=== PATIENT | female | born 1955 | race Caucasian/White ===

== ENCOUNTER 2020-10-23 01:24 | Outpatient (CLI) | payer MEDICAID, SELFPAY ==
--- NOTE | 2020-10-23 09:37 | DI.RAD_ITS ---
Exam(s) XR CERVICAL SPINE COMP 4-5V EXAM: XR CERVICAL SPINE COMP 4-5V CLINICAL HISTORY: neck pain, left radiculopathy,cervical radiculitis, m54.12. TECHNIQUE: 2D digital imaging was performed. COMPARISON: CR CERV SP.WITH OBL OR FLEX/EXT from 12/29/2016 FINDINGS: The odontoid is intact. The lateral masses are well aligned. There are again seen postsurgical dee ges of an anterior cervical disc fusion at C5-C6. There is disc space narrowing at C6-C7. Endplate osteophytes are seen at C4-5, C6-C7 and C7-T1. No acute fractures or subluxations are seen. The bon es are normally mineralized. There is no significant neural foraminal encroachment. The prevertebra l soft tissues are unremarkable. SOFT TISSUE: Normal. The lung apices are clear. IMPRESSION: 1. Mild stable degenerative changes of the cervical spine. 2. Anterior cervical disc fusion at C5-C6. DATA REPOSITORY: RADIATION DOSE DELIVERED:
== END 2020-10-23 01:44 ==
PROVIDERS: PCP Family Medicine; Visit Provider Family Medicine
DX: M54.2 Cervicalgia (principal); M54.12 Radiculopathy, cervical region; M50.323 Other cervical disc degeneration at C6-C7 level; Z98.1 Arthrodesis status
CPT/HCPCS: 72050

== ENCOUNTER 2020-10-29 02:41 | Outpatient (CLI) | payer MEDICAID, SELFPAY ==
[2020-10-29 10:52] LABS: ALT 31 U/L (14-59); AST 21 U/L (15-37); Albumin 3.9 g/dL (3.4-5.0); Alkaline Phosphatase 99 U/L (46-116); Anion Gap 8.6 mmol/L (3-11); BUN 12 mg/dL (7-18); Bilirubin, Total 0.4 mg/dL (0.2-1.0); CO2 31.4 mmol/L (21.0-32.0); Calcium 9.4 mg/dL (8.5-10.1); Calculated LDL 171 mg/dL (<100); Chloride 101 mmol/L (98-107); Cholesterol 276 mg/dL (<200); Glucose 107 mg/dL (74-106); HDL Cholesterol 39 mg/dL (40-60); Sodium 141 mmol/L (136-145); Total Protein 7.3 g/dL (6.4-8.2); Triglyceride 334 mg/dL (<150)
== END 2020-10-29 02:42 | disposition home or self-care (01) ==
LOC: LBO 02:41
PROVIDERS: PCP Family Medicine; Visit Provider Family Medicine
DX: I10 Essential (primary) hypertension (principal); M54.12 Radiculopathy, cervical region
CPT/HCPCS: 36415; 80053; 80061; 84443

== ENCOUNTER 2021-05-05 01:16 | Outpatient (CLI) | payer MEDICAID, SELFPAY ==
--- NOTE | 2021-05-05 11:30 | DI.MAMMO_ITS ---
Exam(s) MAMMO SCREENING EXAM: MAMMO SCREENING CLINICAL HISTORY: screening,Z12.39 TECHNIQUE: Bilateral full field digital CC and MLO mammographic images were obtained with 3D tomosyn thesis and utilizing computer aided detection (CAD). COMPARISON: Available for comparison. FINDINGS: Masses/Architectural Distortion: None seen. Microcalcifications: No suspicious pleomorphic-type are seen. Skin Thickening/Nipple Retraction: None. IMPRESSION: 1. No significant interval change with no specific features of malignancy noted. 2. Unless there is more urgent need, screening mammography is recommended, as per [employer] guidelines. BI-RADS Category 1 - Negative Breast Density - Category B - Scattered areas of fibroglandular density Breast density category C or D implies that the patient has dense breast tissue. Dense breast tissue is very common and is not abnormal but dense breast tissue can make it harder to find cancer on a ma mmogram. Also, dense breast tissue may increase their breast cancer risk. This information about the result of the mammogram report was provided to the patient to raise their awareness. Use this report when you speak with the patient about their risks for breast cancer, which includes their family hist ory. At that time, you may recommend for more screening tests (Ultrasound or MRI) as they might be us eful based on their risk. A negative radiographic report should not delay biopsy if a dominant or clinically suspicious mass is present. Up to ten percent of cancers are not identified on mammography. A negative report may reinforce clinical impression. Adenosis and dense breasts may obscure an underlying neoplasm. False positive reports average 6 to 10%. Patient will receive a letter notifying them of these results.
== END 2021-05-05 01:36 ==
PROVIDERS: PCP Family Medicine; Visit Provider Family Medicine
DX: Z12.31 Encounter for screening mammogram for malignant neoplasm of breast (principal)
CPT/HCPCS: 77063; 77067

== ENCOUNTER 2021-09-10 18:28 | Emergency (ER) | payer MEDICAID, SELFPAY ==
[2021-09-10 18:32] VITALS: BP 177/82; PULSE 76; RESP 18; TEMP 36.6; O2SAT 99
[2021-09-10] MEDS: Ketorolac 15 MG/ML VIAL IM (19:06)
[2021-09-10] MEDS: Ondansetron O.D.T. 4 MG TABEF (19:08)
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
--- NOTE | 2021-09-10 19:39 | DI.RAD_ITS ---
Exam(s) XR FOREARM RT EXAM: XR FOREARM RT CLINICAL HISTORY: fall, distal forearm pain. TECHNIQUE: 2D digital imaging was performed. Two views. COMPARISON: No exams were available for comparison FINDINGS: BONES: Comminuted fracture distal radius. Ulnar styloid fracture. No additional fractures seen prox imally. No bony destructive lesion is seen. Visualized portion of elbow is unremarkable. SOFT TISSUE: Normal. IMPRESSION: Comminuted distal radial fracture and ulnar styloid fracture. DATA REPOSITORY: RADIATION DOSE DELIVERED:
--- NOTE | 2021-09-10 19:39 | DI.RAD_ITS ---
Exam(s) XR WRIST RT COMPLETE EXAM: XR WRIST RT COMPLETE CLINICAL HISTORY: fall, wrist pain. TECHNIQUE: 2D digital imaging was performed. Three views. COMPARISON: No exams were available for comparison FINDINGS: BONES: There is a comminuted distal radial fracture. The main component is transverse through the me taphysis. There is extension to the articular surface. There is dorsal angulation. There is some m ildly displaced ulnar styloid fracture. No bony destructive lesion is seen. JOINTS: The carpal bones are normally aligned. SOFT TISSUE: Swelling carpal region IMPRESSION: Comminuted distal radial fracture. Ulnar styloid fracture DATA REPOSITORY: RADIATION DOSE DELIVERED:
[2021-09-10] MEDS: oxyCODONE 5 mg/Acetaminophen 325 mg TAB 1 TAB PO (19:56)
--- NOTE | 2021-09-10 19:58 | DI.VRAD_ITS ---
PROCEDURE INFORMATION: Exam: XR Right Forearm Exam date and time: 09/10/2021 7:33 PM Age: 66 years old Clinical indication: Injury or trauma; Fall; Blunt trauma (contusions or hematomas); Arm, lower; Right TECHNIQUE: Imaging protocol: XR Right forearm. Views: 2 views. COMPARISON: CR XR WRIST RT COMPLETE 09/10/2021 7:30 PM FINDINGS: Bones/joints: A distal radius fracture is present. Acute fracture of the ulnar styloid process is also noted. There Soft tissues: Normal. IMPRESSION: Distal radius fracture and ulnar styloid process fracture. Dictated and Authenticated by: Rubi Sullivan MD. Ordering:JUAN Hooper MD
--- NOTE | 2021-09-10 20:00 | DI.VRAD_ITS ---
PROCEDURE INFORMATION: Exam: XR Right Wrist Exam date and time: 09/10/2021 7:30 PM Age: 66 years old Clinical indication: Injury or trauma; Fall; Blunt trauma (contusions or hematomas); Wrist; Right TECHNIQUE: Imaging protocol: XR Right wrist. Views: 3 or more views. COMPARISON: No relevant prior studies available. FINDINGS: Bones/joints: There is a mildly comminuted fracture of the distal radial metaphysis with dorsal angulation of the distal fracture fragments. There is a vertical component of fracture extending towards the radial diaphysis which is nondisplaced. The ulnar styloid process is also likely fractured with minimal displacement. There are mild degenerative changes at 1st carpometacarpal joint. Soft tissues: Unremarkable. IMPRESSION: 1. Distal radius fracture, as described above. 2. Ulnar styloid process fracture. Dictated and Authenticated by: Rubi Sullivan MD. Ordering:JUAN Hooper MD
== END 2021-09-10 20:37 | disposition home or self-care (01) ==
LOC: ER 20:30
PROVIDERS: Emergency Provider Emergency Medicine; PCP Family Medicine
DX: S52.591A Other fractures of lower end of right radius, initial encounter for closed fracture (principal); S52.611A Displaced fracture of right ulna styloid process, initial encounter for closed fracture; W18.39XA Other fall on same level, initial encounter
CPT/HCPCS: 29125; 96372; 99284; 73090; 73110; 99283; J1885

== ENCOUNTER 2021-09-15 17:00 | Outpatient (REF) | payer MEDICAID, SELFPAY ==
[2021-09-15 11:20] LABS: Source Nasal/Nares
[2021-09-15 13:59] LABS: COVID-19 PCR Negative (Negative)
== END 2021-09-15 17:01 | disposition home or self-care (01) ==
LOC: LBN 17:00
PROVIDERS: PCP Family Medicine; Visit Provider Student in an Organized Health Care Education/Training Program
DX: Z20.822 Contact with and (suspected) exposure to COVID-19 (principal); Z01.818 Encounter for other preprocedural examination
CPT/HCPCS: 87635

== ENCOUNTER 2021-09-18 06:23 | Day surgery (SDC) | payer MEDICAID, SELFPAY ==
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
[2021-09-18] VITALS (9 sets, daily range): BP systolic 110–144; BP diastolic 50–78; PULSE 66–72; RESP 16–18; TEMP 36.2–36.7; O2SAT 92–97; BMI 42.0
[2021-09-18] MEDS: Lactated Ringers 1,000 ML 30 ML IV (07:15)
--- NOTE | 2021-09-18 08:08 | DI.RAD_ITS ---
Exam(s) XR WRIST RT LIMITED EXAM: XR WRIST RT LIMITED CLINICAL HISTORY: displaced right distal radius ulnar styloid. TECHNIQUE: 2D and realtime digital imaging was performed. Fluoroscopy was provided for Dr. Boyle COMPARISON: CR,XR XR FOREARM RT from 09/10/2021 FINDINGS: Hard copy images show placement of a splint. There has been improvement in the alignment of the dist al radial fracture. Please see procedure note for details. Fluoro time 8.4 seconds RADIATION DOSE DELIVERED: geeta Rich=0.19 mGy
--- NOTE | 2021-09-18 08:23 | W.ANESNERVE ---
Nerve Block Single Injection Procedure Date and Time Date Performed: 09/18/21 Procedure Start: 07:28 Location Where Procedure Performed Procedure Location: Day Surgery Unit Reason Performed: Postoperative Analgesia Requesting Provider: Elilott Boyle Timeout Performed Timeout Performed: Yes Monitoring Used ECG, Blood Pressure and SpO2 Sterility Sterility: Hand Hygiene, Surgical Cap, Surgical Mask, Sterile Gloves and Chlorhexidine Sedation Given During Procedure Sedation Given (Indicate Dose Given): No Sedation given and Versed IV Dose:: 2 mg Patient Mental Status Patient Mental Status: Sedate with meaningful communication Nerve Block 1st Nerve Block: Laterality: Right Block Type: Supraclavicular Needle / Catheter Used: 100mm SonoPlex II Local Anesthetic Bolus (Indicate Dose Given): Lidocaine used for local infiltration of skin, Injected in 3-5ml increments after negative blood aspiration, Bupivacaine 0.5% Dose:: 10 ml and Exparel Dose:: 10 ml Additives (Indicate Dose Given): None Ultrasound: Sterile probe cover and gel used Ultrasound Image Saved?: Yes Nerve Stimulator: Not Used Paresthesia: None Procedure Tolerated: No Complications and Patient tolerated well Procedure Outcome: Successful Performed By: George Damico
--- NOTE | 2021-09-18 08:48 | W.PM.DSUDISC ---
Discharge Plan Disposition Patient Disposition: HOME Condition: Stable Discharge Details Reason For Visit: Right wrist fracture Attending Provider: Elliott Boyle Primary Care Provider: Silvina Cortés Home Meds and New Rx's Prescriptions: New oxycodone 5 mg tablet 5 - 10 mg PO Q4H MDD 30 mg PRN (Reason: moderate to severe pain) Qty: 12 0RF Continued fexofenadine 180 mg tablet 180 mg PO DAILY PRN0RF magnesium 30 mg tablet 30 mg PO DAILY 0RF naproxen 250 mg tablet 250 - 500 mg PO BID PRN (Reason: pain, moderate) Qty: 60 0RF Rx Instructions: take with a meal ascorbic acid (vitamin C) 500 mg capsule 500 mg PO DAILY PRN0RF elderberry fruit 200 mg capsule 200 mg PO DAILY PRN0RF duloxetine 60 mg capsule,delayed release(DR/EC) 60 mg PO HS Qty: 90 11RF hydrochlorothiazide 12.5 mg tablet 12.5 mg PO QAM Qty: 90 4RF multivitamin [Daily Multi-Vitamin] Tablet 1 tab PO DAILY 0RF Discontinued ibuprofen 200 MG capsule 2 - 3 cap PO DAILY PRN0RF Discharge Instructions Additional Instructions: Surgery: Right distal radius closed reduction with manipulation under anesthesia Activity: Non-weightbearing. Recommend elevation to minimize swelling and discomfort. Encourage range of motion all fingers and thumb to prevent stiffness. Observe nerve symptoms for recovery/improvement. Hand therapy prescription will be sent electronically to begin in about 2-3 weeks. Prescriptions: Naproxen 250 mg take 1-2 every 12 hours with a meal as needed for moderate pain Oxycodone 5 mg take 1-2 every 4-6 hours as needed for severe pain You may use [id number] Tylenol (acetaminophen) as needed for mild pain. These pain medications may be taken all at once or in different combinations as needed. Also, recommend Colace (docusate) as a stool softener as surgery and pain medicine cause constipation. Dressings: Leave splint and dressing in place until follow-up. Keep clean and dry at all times. Follow-up: 10-[address] Boyle Let us know right away if you develop any redness, drainage, fevers, chest pain, or trouble breathing. Do not drink alcohol or drive for at least 24 hours after anesthesia. Please call the office during business hours with any questions or concerns. Referrals: Elliott Boyle MD [ [facility] STAFF PHYSICIAN] - Discharge Orders Discharge Orders: Discharge Order (Routine); Ordered 09/18/21 Ordered By: Elliott Boyle DS: Diagnosis Discharge Diagnosis (1) Distal radius fracture: Status: Acute (2) Fracture of ulnar styloid: Status: Acute
--- NOTE | 2021-09-18 08:50 | W.PM.OP ---
Date of service: 09/18/21 Time of Service: 07:30 Operative Note Operative Note DATE OF PROCEDURE: 09/18/21 PRE-OP DIAGNOSIS: Right displaced distal radius and ulnar styloid fractures POST-OP DIAGNOSIS: same PROCEDURE: Right distal radius closed reduction with manipulation under anesthesia, CPT #85526 SURGEON: Elliott Boyle [employer] INS[employer] TESTER: None None ANESTHESIA TYPE: General LMA/ETT and Primary Nerve Block Refer to Anesthesia Record ESTIMATED BLOOD LOSS: 0 COMPLICATIONS: None Patient was transported to: PACU Patient's condition: stable Indications: Please see complete medical record for details. Procedure Description: In the operating room, general anesthesia was induced. The patient was positioned supine on the stretcher. All bony prominences were well-padded. Preoperative antibiotics were omitted. The correct patient, procedure, and side of the procedure were all verified prior to beginning. The wrist was examined. There was obvious dorsal angulation distal radius deformity with palpable bony prominence. Fingers had brisk cap refill 2+ radial pulse. The deformity was localized and using a single manipulation reduction maneuver traction was applied followed by slight exaggerated the deformity and then a moderate volar directed reduction force. There is excellent palpable reduction. The wrist examined with good alignment. X-rays confirmed appropriate reduction. A well-padded, well molded three-point maintain volar directed force sugar-tong splint was applied to extremity. Final x-rays confirmed appropriate splint and fracture reduction. The patient awoke from anesthesia without complication and was transferred to the recovery room in a stable condition.
--- NOTE | 2021-09-18 08:50 | W.ANESPOSTOP ---
Postoperative Evaluation Date, Time and Location Date Performed: 09/18/21 Time Performed: 08:41 Patient Location: PACU Vital Signs Most Recent Imported Vital Signs: Most Recent Vital Signs Temp Pulse Resp BP Pulse Ox 36.2 C L 70 17 130/50 L 94 09/18/21 08:41 09/18/21 08:41 09/18/21 08:41 09/18/21 08:41 09/18/21 08:41 Pain Score Most Recent Pain Score: Most Recent Pain Score Pain Level 5 09/18/21 08:41 Assessment Mental Status: Awake (Alert & Oriented to Patient Baseline) Airway and Respiratory Function: Patent airway with normal (patient baseline) respiratory exam Cardiovascular Function: Hemodynamically Stable Hydration Status: Adequately Hydrated Nausea & Vomiting: No Nausea or Vomiting Pain: Pain is tolerable per patient Peripheral Nerve Block: Regional nerve block not resolved at time of post operative discharge
[2021-09-18] MEDS: oxyCODONE 5 MG TAB PO (09:21)
== END 2021-09-18 10:17 | disposition home or self-care (01) ==
PROVIDERS: PCP Family Medicine; Visit Provider Student in an Organized Health Care Education/Training Program
PROC: (CPT 25605; principal; 2021-09-18 07:30)
DX: S52.501A Unspecified fracture of the lower end of right radius, initial encounter for closed fracture (principal); S52.611A Displaced fracture of right ulna styloid process, initial encounter for closed fracture; I10 Essential (primary) hypertension; M81.0 Age-related osteoporosis without current pathological fracture
CPT/HCPCS: 25605; 76942; 73100; J1100; J2001; J2250; J2405; J2704

== ENCOUNTER 2021-09-30 09:58 | Outpatient (CLI) | payer MEDICAID, SELFPAY ==
--- NOTE | 2021-09-30 09:45 | DI.RAD_ITS ---
Exam(s) XR WRIST RT LIMITED EXAM: XR WRIST RT LIMITED INDICATION: s/p closed reduction R distal radius. COMPARISON: CR,XR XR WRIST RT COMPLETE from 09/10/2021 TECHNIQUE: 2D digital imaging was performed. Two views. FINDINGS: There has been no change in alignment of the distal radial and ulnar styloid fractures. Increased he aling is seen at the distal radial fracture. DATA REPOSITORY: RADIATION DOSE DELIVERED:
== END 2021-09-30 09:59 | disposition home or self-care (01) ==
LOC: DIORS 09:59
PROVIDERS: PCP Family Medicine; Referring Provider Family Medicine; Visit Provider Physician Assistant Surgical
DX: S52.611D Displaced fracture of right ulna styloid process, subsequent encounter for closed fracture with routine healing (principal); S52.591D Other fractures of lower end of right radius, subsequent encounter for closed fracture with routine healing; X58.XXXD Exposure to other specified factors, subsequent encounter
CPT/HCPCS: 73100

== ENCOUNTER 2021-10-22 12:26 | Outpatient (CLI) | payer MEDICAID, SELFPAY ==
--- NOTE | 2021-10-22 12:00 | DI.RAD_ITS ---
Exam(s) XR WRIST RT LIMITED EXAM: XR WRIST RT LIMITED CLINICAL HISTORY: acute pain. TECHNIQUE: 2D digital imaging was performed. COMPARISON: CR XR WRIST RT LIMITED from 09/30/2021 FINDINGS: Two views Again noted is the fracture of distal radius violates the radiocarpal surface. Minimal impaction. T here is also avulsed fracture of the ulnar styloid again noted. Scapholunate distance is. There is no carpal dislocation. Bone density normal. No osseous lesions IMPRESSION: Stable appearance of the fracture distal radius. No further displacement. Also avulsed ulnar styloi d fracture again noted DATA REPOSITORY: RADIATION DOSE DELIVERED:
== END 2021-10-22 12:27 | disposition home or self-care (01) ==
LOC: DIORS 12:27
PROVIDERS: PCP Family Medicine; Referring Provider Family Medicine; Visit Provider Physician Assistant Surgical
DX: M25.531 Pain in right wrist; S52.591D Other fractures of lower end of right radius, subsequent encounter for closed fracture with routine healing; S52.611D Displaced fracture of right ulna styloid process, subsequent encounter for closed fracture with routine healing; X58.XXXD Exposure to other specified factors, subsequent encounter
CPT/HCPCS: 73100

== ENCOUNTER 2021-11-10 10:29 | Outpatient (CLI) | payer MEDICAID, SELFPAY ==
--- NOTE | 2021-11-10 10:00 | DI.RAD_ITS ---
Exam(s) XR WRIST RT LIMITED EXAM: XR WRIST RT LIMITED INDICATION: radius fx f/u. COMPARISON: CR XR WRIST RT LIMITED from 10/22/2021 TECHNIQUE: 2D digital imaging was performed. Two views. FINDINGS: There has been no change in the alignment of the distal radial and ulnar styloid fractures. No new a bnormalities. DATA REPOSITORY: RADIATION DOSE DELIVERED:
== END 2021-11-10 10:30 | disposition home or self-care (01) ==
LOC: DIORS 10:30
PROVIDERS: PCP Family Medicine; Referring Provider Family Medicine; Visit Provider Student in an Organized Health Care Education/Training Program
DX: S52.611D Displaced fracture of right ulna styloid process, subsequent encounter for closed fracture with routine healing (principal); S52.591D Other fractures of lower end of right radius, subsequent encounter for closed fracture with routine healing; X58.XXXD Exposure to other specified factors, subsequent encounter
CPT/HCPCS: 73100

== ENCOUNTER → 2021-12-17 02:13 | Outpatient (CLI) | payer MEDICAID, SELFPAY ==
--- NOTE | 2021-12-17 13:01 | DI.DEXA_ITS ---
Exam(s) XR DEXA BONE DENSITY W/WO ESTEBAN EXAM: XR DEXA BONE DENSITY W/WO ESTEBAN CLINICAL HISTORY: osteoporosis, M81.0 TECHNIQUE: COMPARISON: No exams were available for comparison FINDINGS: Lateral Spine Image: Unremarkable. No compression deformities identified. Left hip: Total T-Score: 0.6 Total Z-Score: 1.8 T- and Z-scores: Within normal limits. Lumbar Spine: Total T-Score: 0.1 Total Z-Score: 1.8 T- and Z-scores: Within normal limits. IMPRESSION: No evidence of osteoporosis.
== END ==
PROVIDERS: PCP Family Medicine; Visit Provider Family Medicine
DX: Z13.820 Encounter for screening for osteoporosis (principal)
CPT/HCPCS: 77080

== ENCOUNTER 2022-01-05 14:51 | Outpatient (CLI) | payer MEDICAID, SELFPAY ==
--- NOTE | 2022-01-05 14:45 | DI.RAD_ITS ---
Exam(s) XR WRIST RT LIMITED EXAM: XR WRIST RT LIMITED CLINICAL HISTORY: RADIUS FX F/U. TECHNIQUE: 2D digital imaging was performed. COMPARISON: CR XR WRIST RT LIMITED from 11/10/2021 FINDINGS: Two views There has been further healing at distal radial fracture site. Ulnar styloid fracture is again noted . No significant ulnar variance. Scaphoid in scaphoid lunate distance normal. IMPRESSION: Further healing. DATA REPOSITORY: RADIATION DOSE DELIVERED:
== END 2022-01-05 14:52 | disposition home or self-care (01) ==
LOC: DIORS 14:51
PROVIDERS: PCP Family Medicine; Referring Provider Family Medicine; Visit Provider Student in an Organized Health Care Education/Training Program
DX: S52.501D Unspecified fracture of the lower end of right radius, subsequent encounter for closed fracture with routine healing (principal); X58.XXXD Exposure to other specified factors, subsequent encounter
CPT/HCPCS: 73100

== ENCOUNTER 2022-01-11 03:51 | Outpatient (CLI) | payer MEDICAID, SELFPAY ==
[2022-01-11 13:13] LABS: ALT 30 U/L (14-59); AST 24 U/L (15-37); Albumin 3.5 g/dL (3.4-5.0); Alkaline Phosphatase 86 U/L (46-116); Anion Gap 8.4 mmol/L (3-11); BUN 21 mg/dL (7-18); Bilirubin, Total 0.4 mg/dL (0.2-1.0); CO2 30.6 mmol/L (21.0-32.0); CREATININE 0.7 mg/dL (0.55-1.02); Calcium 9.2 mg/dL (8.5-10.1); Chloride 102 mmol/L (98-107); Glucose 86 mg/dL (74-106); Potassium 3.6 mmol/L (3.5-5.1); Sodium 141 mmol/L (136-145); Total Protein 7.5 g/dL (6.4-8.2)
[2022-01-11 13:33] LABS: Vitamin D 25 Total 65.7 ng/mL (30-100)
== END 2022-01-11 03:52 | disposition home or self-care (01) ==
LOC: LOS 03:52
PROVIDERS: PCP Family Medicine; Visit Provider Family Medicine
DX: I10 Essential (primary) hypertension (principal); M81.0 Age-related osteoporosis without current pathological fracture
CPT/HCPCS: 36415; 80053; 82306

== ENCOUNTER 2022-02-12 12:48 | Outpatient (REF) | payer MEDICAID, SELFPAY ==
[2022-02-12 19:35] LABS: Bilirubin Negative (Negative); Blood Trace-lysed (Negative); Clarity Cloudy (Clear); Glucose Negative (Negative); Ketones Negative (Negative); Leukocyte Esterase Large (Negative); Nitrite Negative (Negative); Specific Gravity 1.025 (1.005-1.025); Urobilinogen 0.2 EU/dL (Up TO 0.2)
[2022-02-12 19:50] LABS: WBC >50 HPF (0-5)
[2022-02-12 19:51] LABS: C & S Indicated? Yes
== END 2022-02-12 12:49 | disposition home or self-care (01) ==
LOC: LBN 12:48
PROVIDERS: PCP Family Medicine; Visit Provider Nurse Practitioner Family
DX: R35.0 Frequency of micturition (principal); N39.0 Urinary tract infection, site not specified
CPT/HCPCS: 87077; 81003; 81015; 87086; 87186

== ENCOUNTER → 2022-05-12 01:00 | Outpatient (CLI) | payer MEDICAID, SELFPAY | PROVIDERS: PCP Family Medicine; Visit Provider Family Medicine | DX: Z12.31 Encounter for screening mammogram for malignant neoplasm of breast (principal) | CPT/HCPCS: 77063; 77067 ==

== ENCOUNTER 2022-07-23 00:30 | Outpatient (CLI) | payer MEDICAID, SELFPAY ==
--- NOTE | 2022-07-23 15:00 | DI.CT_ITS ---
Exam(s) CT UPPER EXTREMITY RT WO EXAM: CT UPPER EXTREMITY RT WO CLINICAL HISTORY: FX, MALUNION,COMPLEX TEAR,PREOP,ULNER LENGTH,S52.501P,S52.601P TECHNIQUE: Imaging Protocol: Axial computed tomography images with coronal and sagittal reformatted images were created and reviewed. CONTRAST MATERIAL: None COMPARISON: CR XR WRIST RT LIMITED from 01/05/2022 FINDINGS: There is a healing fracture site in the distal radius. Almost completely healed. Partial fracture orin e still visualized. No prominent displacement. Minimal if any incongruity at the radiocarpal articula r surface. No significant dorsal angulation. No carpal dislocation. Ulnar styloid fracture again note d, nonunion. Scaphoid and lunate unremarkable. Interosseous distance is normal. No significant ulnar variance. Moderate degenerative changes in the 1st carpometacarpal joint. IMPRESSION: Partial healing distal radius fracture. No significant displacement. Nonunion ulnar styloid fracture. Scaphoid unremarkable. RADIATION DOSE DELIVERED: 181.78mGy.cm Total DLP DATA REPOSITORY: All CT scans at this facility are submitted to the National Radiology Data Registry (NRDR) Dose Index Registry (DIR) with the [employer] ([employer]). RADIATION OPTIMIZATION: All CT scans at this facility use at least one of these dose optimization te chniques: automated exposure control; mA and/or kV adjustment per patient size (includes targeted exa ms where dose is matched to clinical indication); or iterative reconstruction.
== END 2022-07-23 00:50 ==
LOC: DI 00:31
PROVIDERS: PCP Nurse Practitioner Family; Visit Provider Orthopaedic Surgery
DX: S52.611 Displaced fracture of right ulna styloid process (principal); S52.591D Other fractures of lower end of right radius, subsequent encounter for closed fracture with routine healing; X58.XXXD Exposure to other specified factors, subsequent encounter
CPT/HCPCS: 73200

== ENCOUNTER 2022-08-31 13:28 | Outpatient (REF) | payer MEDICARE, MEDICAID, SELFPAY ==
[2022-08-31 16:43] LABS: Anion Gap 6.4 mmol/L (3-11); BUN 14 mg/dL (7-18); CO2 30.6 mmol/L (21.0-32.0); CREATININE 0.9 mg/dL (0.55-1.02); Calcium 9.2 mg/dL (8.5-10.1); Calculated LDL 138 mg/dL (<100); Chloride 93 mmol/L (98-107); Cholesterol 215 mg/dL (<200); Estimated GFR 70.95 (mL/min/1.73m2); Glucose 98 mg/dL (74-106); HDL Cholesterol 37 mg/dL (40-60); Potassium 3.5 mmol/L (3.5-5.1); Sodium 130 mmol/L (136-145); Triglyceride 203 mg/dL (<150)
[2022-08-31 16:59] LABS: Hemoglobin A1C 5.9 % (<5.7)
== END 2022-08-31 13:29 | disposition home or self-care (01) ==
LOC: NCHCN 13:28
PROVIDERS: PCP Nurse Practitioner Family; Visit Provider Nurse Practitioner Family
DX: E78.89 Other lipoprotein metabolism disorders (principal); I10 Essential (primary) hypertension; R73.09 Other abnormal glucose
CPT/HCPCS: 80048; 80061; 83036

== ENCOUNTER 2022-09-30 16:23 | Outpatient (REF) | payer MEDICARE, MEDICAID, SELFPAY ==
[2022-09-30 17:11] LABS: Anion Gap 6.2 mmol/L (3-11); BUN 15 mg/dL (7-18); CO2 31.8 mmol/L (21.0-32.0); Calcium 9.4 mg/dL (8.5-10.1); Chloride 101 mmol/L (98-107); Estimated GFR 62.52 (mL/min/1.73m2); Glucose 163 mg/dL (74-106); Potassium 3.3 mmol/L (3.5-5.1); Sodium 139 mmol/L (136-145)
== END 2022-09-30 16:24 | disposition home or self-care (01) ==
LOC: NCHCN 16:23
PROVIDERS: PCP Nurse Practitioner Family; Visit Provider Nurse Practitioner Family
DX: I10 Essential (primary) hypertension (principal)
CPT/HCPCS: 80048

== ENCOUNTER 2022-11-03 13:28 | Outpatient (REF) | payer MEDICARE, MEDICAID, SELFPAY ==
[2022-11-03 16:40] LABS: ALT 32 U/L (14-59); AST 30 U/L (15-37); HDL Cholesterol 45 mg/dL (40-60); LDL CHOLESTEROL 80 mg/dL (<100)
[2022-11-03 17:28] LABS: Creatine Kinase 217 U/L (26-192)
== END 2022-11-03 13:29 | disposition home or self-care (01) ==
LOC: NCHCN 13:28
PROVIDERS: PCP Nurse Practitioner Family; Visit Provider Nurse Practitioner Family
DX: E78.5 Hyperlipidemia, unspecified (principal)
CPT/HCPCS: 82550; 83721; 83718; 84450; 84460

== ENCOUNTER 2023-05-02 13:34 | Outpatient (REF) | payer MEDICARE, MEDICAID, SELFPAY ==
[2023-05-02 17:39] LABS: ALT 31 U/L (14-59); AST 26 U/L (15-37); Albumin 3.7 g/dL (3.4-5.0); Alkaline Phosphatase 91 U/L (46-116); Anion Gap 5.5 mmol/L (3-11); BUN 13 mg/dL (7-18); Bilirubin, Total 0.5 mg/dL (0.2-1.0); CO2 29.5 mmol/L (21.0-32.0); Calcium 9.5 mg/dL (8.5-10.1); Chloride 101 mmol/L (98-107); Estimated GFR 62.52 (mL/min/1.73m2); Glucose 127 mg/dL (74-106); HDL Cholesterol 46 mg/dL (40-60); LDL CHOLESTEROL 92 mg/dL (<100); Sodium 136 mmol/L (136-145); Total Protein 7.4 g/dL (6.4-8.2)
[2023-05-02 17:51] LABS: Creatine Kinase 309 U/L (26-192)
== END 2023-05-02 13:35 | disposition home or self-care (01) ==
LOC: NCHCN 13:34
PROVIDERS: PCP Nurse Practitioner Family; Visit Provider Nurse Practitioner Family
DX: E78.5 Hyperlipidemia, unspecified (principal)
CPT/HCPCS: 80053; 82550; 83721; 83718

== ENCOUNTER 2023-08-02 11:49 | Outpatient (REF) | payer MEDICARE, MEDICAID, SELFPAY ==
[2023-08-02 16:16] LABS: ALT 32 U/L (14-59); AST 26 U/L (15-37); HDL Cholesterol 49 mg/dL (40-60); LDL CHOLESTEROL 104 mg/dL (<100)
[2023-08-02 16:57] LABS: Creatine Kinase 217 U/L (26-192)
== END 2023-08-02 11:50 | disposition home or self-care (01) ==
LOC: NCHCN 11:49
PROVIDERS: PCP Nurse Practitioner Family; Referring Provider Nurse Practitioner Family; Visit Provider Nurse Practitioner Family
DX: E78.5 Hyperlipidemia, unspecified (principal)
CPT/HCPCS: 82550; 83721; 83718; 84450; 84460

== ENCOUNTER 2023-08-24 21:17 | Outpatient (REF) | payer MEDICARE, MEDICAID, SELFPAY ==
[2023-08-24 21:47] LABS: Bacteria Rare HPF (Negative); C & S Indicated? C&S Done As Ordered; Casts Negative LPF (Negative); Crystals Negative HPF (Negative); Epithelial Cells Rare HPF (Negative); Mucus Negative (Negative); RBC 0-2 HPF (0-2)
== END 2023-08-24 21:18 | disposition home or self-care (01) ==
LOC: NCHCN 21:17
PROVIDERS: PCP Nurse Practitioner Family; Visit Provider Nurse Practitioner Family
DX: R10.31 Right lower quadrant pain (principal)
CPT/HCPCS: 81015; 87086

== ENCOUNTER 2024-06-05 18:40 | Outpatient (REF) | payer MEDICARE, MEDICAID, SELFPAY ==
[2024-06-05 16:30] LABS: Hemoglobin A1C 5.8 % (<5.7)
[2024-06-05 17:50] LABS: ALT 24 U/L (14-59); AST 22 U/L (15-37); Albumin 3.9 g/dL (3.4-5.0); Alkaline Phosphatase 99 U/L (46-116); Anion Gap 9.5 mmol/L (3-11); BUN 13 mg/dL (7-18); Bilirubin, Total 0.43 mg/dL (0.2-1.0); CO2 28.5 mmol/L (21.0-32.0); Calcium 9.5 mg/dL (8.5-10.1); Calculated LDL 91 mg/dL (<100); Chloride 105 mmol/L (98-107); Cholesterol 199 mg/dL (<200); Estimated GFR 62.13 (mL/min/1.73m2); Glucose 123 mg/dL (74-106); HDL Cholesterol 53 mg/dL (40-60); Potassium 3.6 mmol/L (3.5-5.1); Sodium 143 mmol/L (136-145); Total Protein 7.5 g/dL (6.4-8.2); Triglyceride 275 mg/dL (<150)
[2024-06-05 18:02] LABS: Creatine Kinase 160 U/L (26-192)
== END 2024-06-05 18:41 | disposition home or self-care (01) ==
LOC: NCHCN 18:40
PROVIDERS: Visit Provider Physician Assistant Medical
DX: E78.5 Hyperlipidemia, unspecified (principal); R73.03 Prediabetes
CPT/HCPCS: 80053; 80061; 82550; 83036